=== PATIENT | female | born 1950 | race Caucasian/White ===

== ENCOUNTER 2021-02-14 16:07 | Observation (INO) ==
[2021-02-14] MEDS ORDERED: Isovue-370 500 ML BOTTLE IVP ONE (16:38)
[2021-02-14] MEDS ORDERED: Aspirin 81 MG TAB.CHEW PO ONE (16:45)
[2021-02-14 16:52] LABS: Basophils % 0.3 %; Eosinophils # 0.1 K/mcL (0.0-0.6); Eosinophils % 0.7 %; Hematocrit 35.8 % (35.3-44.9); Hemoglobin 11.2 g/dL (11.5-15.4); Immature Granulocytes % 0.4 % (0-4); Lymphocytes # 3.1 K/mcL (0.6-4.6); Lymphocytes % 25.3 %; Mean Corpuscular HGB Conc 31.3 g/dL (31.6-35.5); Monocytes # 1.2 K/mcL (0.0-1.3); Monocytes % 9.7 %; Neutrophils # 7.8 K/mcL (1.6-8.9); Platelet Count 338 K/mcL (140-400); Red Blood Count 3.73 M/mcL (3.82-4.97); Red Cell Distribution Width 14.2 % (11.5-14.5); Segmented Neutrophils % 63.6 %; White Blood Count 12.3 K/mcL (4.3-11.1)
[2021-02-14] MEDS ORDERED: Nitroglycerin 0.4 MG TAB.SUBL SL PRN (17:03)
[2021-02-14 17:11] LABS: INR 1.2; Prothrombin Time 13.5 Seconds (9.4-12.1)
[2021-02-14 17:13] LABS: Activated Partial Thrombo Time 27.7 Seconds (26.0-36.0)
[2021-02-14 17:19] LABS: Alanine Aminotransferase 5 Units/L (7-52); Albumin 4.1 g/dL (3.5-5.7); Albumin/Globulin Ratio 1.2 (1.1-2.2); Alkaline Phosphatase 85 Units/L (34-104); Aspartate Amino Transferase 12 Units/L (13-39); BUN/Creatinine Ratio 22 (6-26); Bilirubin,Indirect 0.4 mg/dL (0.0-1.0); Bilirubin,Total 0.4 mg/dL (0.3-1.0); Blood Urea Nitrogen 19 mg/dL (8-23); Calcium 9.9 mg/dL (8.6-10.3); Carbon Dioxide 27 mEq/L (23-29); Chloride 106 mEq/L (98-107); Globulin 3.3 g/dL (2.4-3.5); Glucose 144 mg/dL (70-105); Lipase 26 Units/L (11-82); Osmolality,Calculated 301 (280-300); Potassium 3.2 mEq/L (3.5-5.1); Sodium 143 mEq/L (136-145); Total Protein 7.4 g/dL (6.4-8.9); Troponin I < 0.03 ng/mL (< 0.04); eGFR For African Americans > 60 (> 60); eGFR For Non-African Americans > 60 (> 60)
[2021-02-14 19:51] LABS: Bacteria,Urine Many per hpf (None-Few); Bilirubin,Urine Negative (Negative); Blood,Urine Negative (Negative); Clarity,Urine Clear (Clear); Color,Urine Light-Yellow (Yellow); Glucose,Urine (UA) 300 mg/dL (Normal); Ketones,Urine Negative (Negative); Leukocyte Esterase,Urine Trace (Negative); Mucus,Urine Few per lpf (None-Few); Nitrite,Urine Negative (Negative); Protein,Urine Trace mg/dL (Neg-Trace); RBC,Urine 0-3 per hpf (0-3); Specific Gravity,Urine > 1.030 (1.010-1.025); Squamous Epithelial Cell,Urine Few per hpf (None-Few); Urobilinogen,Urine Normal (Normal)
[2021-02-14] MEDS ORDERED: Albuterol 2.5 MG/3 ML NEBULIZER IH PRN (20:07)
[2021-02-14] MEDS ORDERED: Naloxone 0.4 MG/ML INJ IVP PRN (20:11)
[2021-02-14] MEDS ORDERED: Melatonin 3 MG TABLET PO PRN (20:11)
[2021-02-14] MEDS ORDERED: Acetaminophen 325 MG TABLET PO PRN (20:11)
[2021-02-14] MEDS ORDERED: Ondansetron 4 MG/2 ML VIAL IVP PRN (20:11)
[2021-02-14] MEDS: *HR* Heparin 5,000 UNIT/ML VIAL SQ SCH (21:09)
[2021-02-14] MEDS: predniSONE 20 MG TABLET PO SCH (21:09)
[2021-02-14] MEDS ORDERED: Perflutren Lipid Microsphere 1.3 ML in 0.9 % Sodium Chloride 8.7 ML IVP PRN (23:07)
[2021-02-14] MEDS: Albuterol 2.5 MG/3 ML NEBULIZER IH SCH (23:15)
[2021-02-15] MEDS: Albuterol 2.5 MG/3 ML NEBULIZER IH SCH ×4 (04:13→15:58)
[2021-02-15] MEDS: *HR* Heparin 5,000 UNIT/ML VIAL SQ SCH ×2 (05:00→16:06)
[2021-02-15] MEDS ORDERED: Benzonatate 100 MG CAPSULE PO PRN (05:20)
[2021-02-15] MEDS ORDERED: Regadenoson 0.4 MG/5 ML SYRINGE IVP ONE (06:21)
[2021-02-15 06:23] LABS: Basophils % 0.1 %; Hematocrit 34.4 % (35.3-44.9); Hemoglobin 10.6 g/dL (11.5-15.4); Immature Granulocytes % 0.4 % (0-4); Lymphocytes % 12.9 %; Mean Corpuscular HGB Conc 30.8 g/dL (31.6-35.5); Mean Corpuscular Hemoglobin 30.1 pg (28.0-33.3); Mean Corpuscular Volume 97.7 fL (83.0-100.0); Mean Platelet Volume 9.9 fL (9.4-12.4); Monocytes # 0.1 K/mcL (0.0-1.3); Monocytes % 1.3 %; Neutrophils # 6.8 K/mcL (1.6-8.9); Platelet Count 280 K/mcL (140-400); Red Blood Count 3.52 M/mcL (3.82-4.97); Red Cell Distribution Width 14.3 % (11.5-14.5); Segmented Neutrophils % 85.3 %; White Blood Count 7.9 K/mcL (4.3-11.1)
[2021-02-15 06:41] LABS: BUN/Creatinine Ratio 21 (6-26); Blood Urea Nitrogen 19 mg/dL (8-23); Calcium 9.9 mg/dL (8.6-10.3); Carbon Dioxide 26 mEq/L (23-29); Chloride 105 mEq/L (98-107); Chol/HDL Ratio 5.4 (0-4.9); Cholesterol 221 mg/dL (< 200); Glucose 261 mg/dL (70-105); HDL Cholesterol 41 mg/dL (40-59); LDL Cholesterol,Calculated 159 mg/dL (< 100); Osmolality,Calculated 301 (280-300); Sodium 140 mEq/L (136-145); Triglycerides 103 mg/dL (< 150); eGFR For African Americans > 60 (> 60); eGFR For Non-African Americans > 60 (> 60)
[2021-02-15] MEDS: predniSONE 20 MG TABLET PO SCH (08:49)
[2021-02-15] MEDS ORDERED: lisinopriL 10 MG TABLET PO SCH (09:00)
[2021-02-15] MEDS ORDERED: Metoprolol XL (24 HR) Succ 50 MG TAB.ER.24H PO SCH (09:00)
[2021-02-15] MEDS ORDERED: Aspirin Enteric Coated 81 MG Tablet PO SCH (09:00)
[2021-02-15 12:09] VITALS: BP 127/74
== END 2021-02-15 17:12 | disposition home or self-care (01) ==
LOC: EMEROOARM 16:07 → 3BNU 16:07 → SUATTDRO 19:40 → 3BNU 20:33
PROVIDERS: ADMIT Family Medicine; ATTEND Registered Nurse

== ENCOUNTER 2021-04-30 10:38 | Observation (INO) ==
[2021-04-30 11:10] LABS: Basophils % 0.4 %; Eosinophils # 0.1 K/mcL (0.0-0.6); Eosinophils % 1.3 %; Hematocrit 37.2 % (35.3-44.9); Immature Granulocytes % 0.3 % (0-4); Lymphocytes # 2.9 K/mcL (0.6-4.6); Lymphocytes % 31.6 %; Mean Corpuscular HGB Conc 32.3 g/dL (31.6-35.5); Mean Corpuscular Hemoglobin 30.6 pg (28.0-33.3); Mean Corpuscular Volume 94.9 fL (83.0-100.0); Mean Platelet Volume 9.6 fL (9.4-12.4); Monocytes # 0.7 K/mcL (0.0-1.3); Monocytes % 7.7 %; Neutrophils # 5.3 K/mcL (1.6-8.9); Platelet Count 320 K/mcL (140-400); Red Blood Count 3.92 M/mcL (3.82-4.97); Red Cell Distribution Width 14.5 % (11.5-14.5); Segmented Neutrophils % 58.7 %
[2021-04-30 11:17] LABS: Bacteria,Urine Few per hpf (None-Few); Bilirubin,Urine Negative (Negative); Blood,Urine Negative (Negative); Clarity,Urine Turbid (Clear); Color,Urine Yellow (Yellow); Glucose,Urine (UA) Normal (Normal); Ketones,Urine Negative (Negative); Leukocyte Esterase,Urine Negative (Negative); Mucus,Urine Few per lpf (None-Few); Nitrite,Urine Negative (Negative); Protein,Urine Trace mg/dL (Neg-Trace); Specific Gravity,Urine 1.025 (1.010-1.025); Squamous Epithelial Cell,Urine Moderate per hpf (None-Few); Urobilinogen,Urine Normal (Normal); WBC,Urine 0-3 per hpf (0-3)
[2021-04-30 11:27] LABS: BUN/Creatinine Ratio 21 (6-26); Blood Urea Nitrogen 18 mg/dL (8-23); Carbon Dioxide 26 mEq/L (23-29); Chloride 101 mEq/L (98-107); Glucose 132 mg/dL (70-105); Osmolality,Calculated 290 (280-300); Potassium 3.8 mEq/L (3.5-5.1); Sodium 138 mEq/L (136-145); eGFR For African Americans > 60 (> 60); eGFR For Non-African Americans > 60 (> 60)
[2021-04-30 12:47] LABS: C-Reactive Protein 15 mg/L (Less than 10)
[2021-04-30] MEDS ORDERED: 0.9 % Sodium Chloride 1,000 ML IV ONE (16:33)
[2021-04-30] MEDS ORDERED: Gadolinium Contrast Agent (WT Based) IV PRN (16:34)
[2021-04-30] MEDS ORDERED: Naloxone 0.4 MG/ML INJ IVP PRN (21:41)
[2021-04-30] MEDS ORDERED: Ondansetron 4 MG/2 ML VIAL IVP PRN (21:41)
[2021-04-30] MEDS ORDERED: Acetaminophen 325 MG TABLET PO PRN (21:41)
[2021-04-30] MEDS ORDERED: Melatonin 3 MG TABLET PO PRN (21:41)
[2021-04-30] MEDS: *HR* HYDROcodone/Acet 5/325 mg TABLET PO PRN (22:10)
[2021-04-30] MEDS ORDERED: D5% in Water 1,000 ML IVC PRN (22:24)
[2021-04-30] MEDS ORDERED: Dextrose Gel 15 GM/37.5 ML TUBE PO PRN ×2 (22:24)
[2021-04-30] MEDS ORDERED: *HR* Dextrose 50 % in Water (Vial) 50 ML VIAL IVP PRN (22:24)
[2021-04-30] MEDS ORDERED: *HR* Metoprolol 5 MG/5 ML VIAL IVP ONE (22:29)
[2021-05-01] MEDS ORDERED: *HR* Heparin 5,000 UNIT/ML VIAL SQ SCH (06:00)
[2021-05-01] MEDS ORDERED: Aspirin Enteric Coated 81 MG Tablet PO SCH (09:00)
[2021-05-01] MEDS: *HR* HYDROcodone/Acet 5/325 mg TABLET PO PRN (09:26)
[2021-05-01] MEDS: Insulin LISPRO 300 UNITS/3 ML VIAL SUBQ SCH ×2 (09:27→11:44)
[2021-05-01] MEDS ORDERED: Tiotropium 10 INH DOSE IH SCH (10:00)
[2021-05-01 11:25] VITALS: BP 131/81; PULSE 89; TEMP 97.7; O2SAT 98
[2021-05-01] MEDS ORDERED: Insulin LISPRO 300 UNITS/3 ML VIAL SUBQ SCH (21:00)
== END 2021-05-01 14:10 | disposition home health service (06) ==
LOC: 3BNU 10:38 → EMEROOARM 10:38 → SUATTDRO 19:15 → 3BNU 20:02
PROVIDERS: ADMIT Internal Medicine; ATTEND Internal Medicine

== ENCOUNTER 2021-12-30 14:21 | Observation (INO) ==
[2021-12-30] MEDS ORDERED: Famotidine 20 MG/2 ML VIAL IVP ONE (15:22)
[2021-12-30 17:02] LABS: Basophils % 0.3 %; Eosinophils # 0.1 K/mcL (0.0-0.6); Eosinophils % 1.1 %; Hematocrit 35.6 % (35.3-44.9); Hemoglobin 11.2 g/dL (11.5-15.4); Immature Granulocytes % 0.5 % (0-4); Lymphocytes # 1.8 K/mcL (0.6-4.6); Lymphocytes % 19.5 %; Mean Corpuscular HGB Conc 31.5 g/dL (31.6-35.5); Mean Corpuscular Volume 95.4 fL (83.0-100.0); Mean Platelet Volume 9.3 fL (9.4-12.4); Monocytes # 0.5 K/mcL (0.0-1.3); Monocytes % 5.7 %; Neutrophils # 6.8 K/mcL (1.6-8.9); Platelet Count 269 K/mcL (140-400); Red Blood Count 3.73 M/mcL (3.82-4.97); Red Cell Distribution Width 13.5 % (11.5-14.5); Segmented Neutrophils % 72.9 %; White Blood Count 9.3 K/mcL (4.3-11.1)
[2021-12-30 17:25] LABS: BUN/Creatinine Ratio 31 (6-26); Blood Urea Nitrogen 26 mg/dL (8-23); Calcium 9.8 mg/dL (8.6-10.3); Carbon Dioxide 31 mEq/L (23-29); Chloride 101 mEq/L (98-107); Glucose 106 mg/dL (70-105); Osmolality,Calculated 291 (280-300); Potassium 3.6 mEq/L (3.5-5.1); Sodium 138 mEq/L (136-145); eGFR For African Americans > 60 (> 60); eGFR For Non-African Americans > 60 (> 60)
[2021-12-30] MEDS ORDERED: Naloxone 0.4 MG/ML INJ IVP PRN (17:30)
[2021-12-30] MEDS ORDERED: Ondansetron 4 MG/2 ML VIAL IVP PRN (17:30)
[2021-12-30] MEDS ORDERED: Acetaminophen 325 MG TABLET PO PRN (17:30)
[2021-12-30] MEDS ORDERED: D5% in Water 1,000 ML IVC PRN (17:34)
[2021-12-30] MEDS ORDERED: *HR* Dextrose 50 % in Water (Syg) 50 ML SYRINGE IVP PRN (17:34)
[2021-12-30] MEDS ORDERED: Dextrose 4 GM Chewable Tablets PO PRN ×2 (17:34)
[2021-12-30] MEDS ORDERED: Ipratropium/Albuterol Neb 3 ML IH PRN (17:36)
[2021-12-30] MEDS ORDERED: Isovue-370 500 ML BOTTLE IVP ONE (18:07)
[2021-12-30 18:18] LABS: C-Reactive Protein 17 mg/L (Less than 10)
[2021-12-30 18:31] LABS: Alanine Aminotransferase 7 Units/L (7-52); Albumin 3.9 g/dL (3.5-5.7); Albumin/Globulin Ratio 1.3 (1.1-2.2); Alkaline Phosphatase 68 Units/L (34-104); Aspartate Amino Transferase 16 Units/L (13-39); Bilirubin,Direct 0.1 mg/dL (0.0-0.2); Bilirubin,Indirect 0.4 mg/dL (0.0-1.0); Bilirubin,Total 0.5 mg/dL (0.3-1.0); Globulin 2.9 g/dL (2.4-3.5); Total Protein 6.8 g/dL (6.4-8.9)
[2021-12-30 18:32] LABS: Thyroid Stimulating Hormone 2.466 mcIU/mL (0.340-5.600)
[2021-12-30] MEDS ORDERED: *HR* Labetalol 20 MG/4 ML SYRINGE IVP PRN (18:57)
[2021-12-30 19:14] LABS: Adenovirus Not Detected (Not Detect); Bordetella Pertussis Not Detected (Not Detect); Chlamydophila pneumoniae Not Detected (Not Detect); Coronavirus 229E Not Detected (Not Detect); Coronavirus HKU1 Not Detected (Not Detect); Coronavirus NL63 Not Detected (Not Detect); Coronavirus OC43 Not Detected (Not Detect); Human Metapneumovirus Not Detected (Not Detect); Human Rhinovirus/Enterovirus Not Detected (Not Detect); Influenza A Subtype 2009 H1 Not Detected (Not Detect); Influenza B Not Detected (Not Detect); Mycoplasma pneumoniae Not Detected (Not Detect); Parainfluenza Virus 1 Not Detected (Not Detect); Parainfluenza Virus 2 Not Detected (Not Detect); Parainfluenza Virus 3 Not Detected (Not Detect); Parainfluenza Virus 4 Not Detected (Not Detect); Respiratory Syncytial Virus Not Detected (Not Detect); SARS-CoV-2 DETECTED (Not Detect)
[2021-12-30] MEDS: Insulin LISPRO 300 UNITS/3 ML VIAL SUBQ SCH ×2 (19:18→21:20)
[2021-12-30 19:46] LABS: Complement C3 195 mg/dL (87-200)
[2021-12-30] MEDS ORDERED: *HR* Heparin 5,000 UNIT/ML VIAL IVP PRN ×2 (20:32)
[2021-12-30] MEDS ORDERED: *HR* Heparin 5,000 UNIT/ML VIAL IVP ONE (20:32)
[2021-12-30] MEDS: Heparin 25,000UNIT/250ML 1/2NS 25,000 UNIT/250 ML IV.SOLN IVC SCH (21:33)
[2021-12-30] MEDS ORDERED: Acetaminophen IV 1,000 MG/100 ML BAG IVPB ONE (21:37)
[2021-12-30 22:15] LABS: Heparin anti-factor XA UFH < 0.04 IU/mL (0.30-0.70)
[2021-12-30 22:16] LABS: INR 1.1; Prothrombin Time 11.8 Seconds (9.4-12.1)
[2021-12-31] MEDS: Famotidine 20 MG/2 ML VIAL IVP SCH ×2 (05:07→16:37)
[2021-12-31 05:32] LABS: Basophils % 0.1 %; Hematocrit 36.8 % (35.3-44.9); Immature Granulocytes % 0.5 % (0-4); Lymphocytes # 1.1 K/mcL (0.6-4.6); Lymphocytes % 14.3 %; Mean Corpuscular HGB Conc 32.6 g/dL (31.6-35.5); Mean Corpuscular Hemoglobin 30.5 pg (28.0-33.3); Mean Corpuscular Volume 93.6 fL (83.0-100.0); Mean Platelet Volume 9.7 fL (9.4-12.4); Monocytes # 0.1 K/mcL (0.0-1.3); Monocytes % 1.5 %; Neutrophils # 6.6 K/mcL (1.6-8.9); Platelet Count 312 K/mcL (140-400); Red Blood Count 3.93 M/mcL (3.82-4.97); Red Cell Distribution Width 13.2 % (11.5-14.5); Segmented Neutrophils % 83.6 %; White Blood Count 7.9 K/mcL (4.3-11.1)
[2021-12-31 05:51] LABS: BUN/Creatinine Ratio 25 (6-26); Blood Urea Nitrogen 23 mg/dL (8-23); Calcium 10.2 mg/dL (8.6-10.3); Carbon Dioxide 27 mEq/L (23-29); Chloride 100 mEq/L (98-107); Glucose 163 mg/dL (70-105); Magnesium 1.9 mg/dL (1.6-2.6); Osmolality,Calculated 293 (280-300); Potassium 4.1 mEq/L (3.5-5.1); Sodium 138 mEq/L (136-145); eGFR For African Americans > 60 (> 60); eGFR For Non-African Americans > 60 (> 60)
[2021-12-31] MEDS ORDERED: *HR* Enoxaparin 40 MG/0.4 ML SYRINGE SQ SCH (07:00)
[2021-12-31 07:31] LABS: Estimated Average Glucose 154 mg/dl
[2021-12-31] MEDS: Insulin LISPRO 300 UNITS/3 ML VIAL SUBQ SCH ×4 (07:49→20:08)
[2021-12-31] MEDS ORDERED: Acetaminophen IV 1,000 MG/100 ML BAG IVPB ONE (15:30)
[2022-01-01] MEDS: Heparin 25,000UNIT/250ML 1/2NS 25,000 UNIT/250 ML IV.SOLN IVC SCH ×2 (00:42→14:19)
[2022-01-01] MEDS: Famotidine 20 MG/2 ML VIAL IVP SCH ×2 (05:16→18:06)
[2022-01-01] MEDS: Insulin LISPRO 300 UNITS/3 ML VIAL SUBQ SCH ×4 (07:34→21:42)
[2022-01-01] MEDS: *HR* Enoxaparin 100 MG/ML SYRINGE SQ SCH (18:07)
[2022-01-02] MEDS: *HR* Enoxaparin 100 MG/ML SYRINGE SQ SCH ×2 (05:42→15:37)
[2022-01-02] MEDS: Famotidine 20 MG/2 ML VIAL IVP SCH ×2 (05:42→15:37)
[2022-01-02 07:04] VITALS: BP 145/82; PULSE 88; TEMP 97.6; O2SAT 94
[2022-01-02] MEDS: Insulin LISPRO 300 UNITS/3 ML VIAL SUBQ SCH ×3 (07:10→15:37)
== END 2022-01-02 16:06 | disposition home or self-care (01) ==
LOC: EMEROOARM 14:21 → 3BNU 14:21 → SUATTDRO 17:15 → 3BNU 17:33 → SUATTDRO 20:58
PROVIDERS: ADMIT Pharmacist; ATTEND Student in an Organized Health Care Education/Training Program